=== PATIENT | male | born 1995 | race Caucasian/White ===

== ENCOUNTER 2023-10-13 19:27 | Emergency (ER) | payer OTHER, SELFPAY ==
--- NOTE | 2023-10-13 19:30 | ED.PSYCH ---
HPI - Psych General Chief Complaint: Anxiety Stated Complaint: unspeciifed Time Seen by Provider: 10/13/23 19:29 Source: patient Mode of arrival: ambulatory Limitations: no limitations History of Present Illness HPI Narrative: Patient is a 28-year-old male with schizophrenia. He is here with complaints of having focus issues when he tries to watch TV or do activities. He is homeless but has a place to get food and correction. He is on probation per his history. He has no suicide or homicide ideations. He has no hallucinations. MD complaint: other ( Focus problems) Onset (ago): month(s) (1) Duration: intermittent History of same: Yes Relieving factors: none Exacerbating factors: none Context: significant life stressor Associated psychiatric symptoms: none Associated symptoms: denies other symptoms Treatments prior to arrival: none Related Data Home Medications Medication Instructions Recorded Confirmed aripiprazole 30 mg tablet 30 mg PO HS 10/13/23 10/13/23 benztropine 0.5 mg tablet 0.5 mg PO HS 10/13/23 10/13/23 hydroxyzine HCl 25 mg tablet 25 mg PO DAILY 10/13/23 10/13/23 propranolol 10 mg tablet 10 mg PO HS 10/13/23 10/13/23 Allergies Allergy/AdvReac Type Severity Reaction Status Date / Time No Known Allergies Allergy Unverified 04/26/17 14:22 Review of Systems Review of Systems: All systems reviewed & are unremarkable except as noted in HPI and below Constitutional: Constitutional: Reports no additional constitutional complaints Eyes: Eyes: Reports no additional eye complaints ENT: Reports system reviewed and no additional complaints, except as documented Cardiovascular: Cardiovascular: Reports no additional cardiovascular complaints Respiratory: Respiratory: Reports no additional respiratory complaints Gastrointestinal: Gastrointestinal: Reports no additional gastrointestinal complaints Genitourinary: Genitourinary: Reports no additional male genitourinary complaints Musculoskeletal: Musculoskeletal: Reports no additional musculoskeletal complaints Integumentary/Breasts: Skin/Breast: Reports system reviewed and no additional complaints, except as docu Neurologic: Reports system reviewed and no additional complaints, except as documented Psychiatric: Psychiatric: Reports no additional psychiatric complaints Endocrine: Endocrine: Reports no additional endocrine complaints Hematologic/Lymphatic: Hematologic/Lymphatic: Reports no additional hematologic/lymphatic complaints Allergic/Immunologic: Allergic/Immunologic: Reports no additional allergic/immunologic complaints [facility] Social History Social History Substance use type: does not use Exam Const: General: healthy appearing Nutritional Appearance: well nourished Orientation/consciousness: patient oriented x3 HENMT: Head: normal to inspection Ears: external ears normal Face/Nose/Sinus: Normal external nose present Eyes: Conjunctivae: conjunctivae normal Pupils: Equal, round and reactive pupils present EOM: EOMs intact bilaterally Neck: Neck: normal visual inspection Chest: Chest palpation & inspection: normal inspection of the chest Resp: Effort & Inspection: normal respiratory effort and not labored Auscultation: clear to auscultation bilaterally Cardio: Rate: regular rate Rhythm: regular rhythm Heart sounds: no murmurs GI: Inspection: non-distended GI Palp: Yes Soft to palpation and No Tenderness to palpation present (GI) Auscultation: normal bowel sounds : General: Yes bladder normal to palpation Back/Spine/Pelvis: Back: no CVA tenderness Skin: General skin exam: normal color Rashes: no rashes Wounds: no wounds Neuro: General: patient oriented x3 Cranial nerves: Yes Nystagmus not present Speech: normal speech Gait exam (Neuro): Normal gait present Extrem: General: normal to inspection Psych: Mental Status: mental status grossly normal Affect: no
[2023-10-13 19:31] VITALS: BP 123/94; PULSE 98; RESP 18; TEMP 35.9; O2SAT 96
[2023-10-13 20:02] VITALS: BP 116/69; PULSE 85; RESP 18; TEMP 36.6; O2SAT 99
== END 2023-10-13 20:02 | disposition home or self-care (01) ==
PROVIDERS: Emergency Provider Emergency Medicine
DX: F98.8 Other specified behavioral and emotional disorders with onset usually occurring in childhood and adolescence (principal); Z59.00 Homelessness unspecified; Z79.899 Other long term (current) drug therapy
CPT/HCPCS: 99281

== ENCOUNTER 2023-10-17 15:09 | Emergency (ER) | payer OTHER, SELFPAY ==
[2023-10-17 15:11] VITALS: BP 130/97; PULSE 97; RESP 20; TEMP 37.2; O2SAT 98
--- NOTE | 2023-10-17 15:16 | ED.ANXIETY ---
HPI - Anxiety General Chief Complaint: Anxiety Stated Complaint: jittery; restless Time Seen by Provider: 10/17/23 15:11 Source: patient Mode of arrival: ambulatory Limitations: no limitations History of Present Illness HPI narrative: This is a 28 year male that presents with a history of schizophrenia has been having anxiety with restlessness with no symptoms of shortness of breath no chest pain no nausea vomiting no abdominal pain no fever chills. Patient has been trying to get hold of his mental health facility with over the past couple of days with some no answer. Patient appears anxious is not homicidal not suicidal. complaint: anxiety Onset (ago): month(s) Severity: mild Provoking factors: none known Relieving factors: nothing Exacerbating factors: thinking about event Associated symptoms: denies other symptoms Related Data Home Medications Medication Instructions Recorded Confirmed aripiprazole 30 mg tablet 30 mg PO HS 10/13/23 10/17/23 benztropine 0.5 mg tablet 0.5 mg PO HS 10/13/23 10/17/23 hydroxyzine HCl 25 mg tablet 25 mg PO DAILY 10/13/23 10/17/23 propranolol 10 mg tablet 10 mg PO HS 10/13/23 10/17/23 Allergies Allergy/AdvReac Type Severity Reaction Status Date / Time No Known Allergies Allergy Unverified 10/17/23 15:16 Review of Systems Review of Systems: All systems reviewed & are unremarkable except as noted in HPI and below PMFSH Past Medical History Medical History Psychosis Social History Social History Substance use type: does not use Exam Const: General: healthy appearing and no acute distress Nutritional Appearance: well nourished Orientation/consciousness: patient oriented x3 Limitations: no limitations Neck: Neck: normal visual inspection, no lymphadenopathy and no meningeal signs Chest: Chest palpation & inspection: normal inspection of the chest Resp: Effort & Inspection: normal respiratory effort Auscultation: clear to auscultation bilaterally Cardio: Rate: regular rate Rhythm: regular rhythm GI: GI Palp: Yes Soft to palpation Auscultation: normal bowel sounds : General: Yes bladder normal to palpation Skin: General skin exam: normal color Rashes: no rashes Neuro: General: patient oriented x3, moves all extremities, no meningeal signs and no focal motor deficits Extrem: General: normal to inspection, no clubbing, cyanosis or edema and no pedal edema Psych: Affect: Anxious affect present Course Course Emergency Course: patient with a recurrent problem for the last month and as of today could not get hold of his mental health facility, will administer dose of 0.5 mg of p.o. Xanax. Vital Signs Vital signs: Vital Signs Temperature 37.2 C 10/17/23 15:11 Pulse Rate 97 10/17/23 15:11 Respiratory Rate 20 10/17/23 15:11 Blood Pressure 130/97 H 10/17/23 15:11 Pulse Oximetry 98 10/17/23 15:11 Oxygen Delivery Room Air 10/17/23 15:11 Temperature 37.2 C 10/17/23 15:11 Pulse Rate 97 10/17/23 15:11 Respiratory Rate 20 10/17/23 15:11 Blood Pressure 130/97 H 10/17/23 15:11 Pulse Oximetry 98 10/17/23 15:11 Oxygen Delivery Room Air 10/17/23 15:11 Critical Care Time Critical Care Time Critical Care Time: No Discharge Plan Discharge Clinical Impression: Acute anxiety, Panic disorder Patient Disposition: Home, Self-Care Condition: Stable Instructions: Antibiotic Form, Panic Disorder (ED), Anxiety (ED) Additional Instructions: Advised patient to take medicine as prescribed and follow up with his mental health facility as soon as possible for further evaluation and treatment. Prescriptions: New alprazolam [Xanax] 0.5 mg tablet 0.5 mg PO TID PRN (Reason: anxiety) Qty: 20 0RF No Action benztropine 0.5 mg tablet 0.5 mg PO HS propranolol 10 mg tablet 10 mg PO HS
[2023-10-17] MEDS: ALPRAZolam (*CRX) 0.5 MG TABLET PO (15:24)
== END 2023-10-17 15:33 | disposition home or self-care (01) ==
LOC: CHSED 15:29
PROVIDERS: Emergency Provider Emergency Medicine; PCP Nurse Practitioner Family
DX: F41.9 Anxiety disorder, unspecified (principal); F41.0 Panic disorder [episodic paroxysmal anxiety]; Z79.899 Other long term (current) drug therapy
CPT/HCPCS: 99283; A9270